=== PATIENT | female | born 1995 | race Caucasian/White ===

== ENCOUNTER 2017-07-30 08:02 | Emergency (ER) | payer OTHER ==
[~2017-07-30] VITALS: Ht 154.9 cm; Wt 87.4 kg
[~2017-07-30 08:02] MED LIST: ALBUTEROL SULF8.5 GM IH; BACTRIM,SEPT1 TABLET PO; MACROBID100 MG PO; NAPROSYN500 MG PO; PREDNISONE20 MG PO; PYRIDIUM200 MG PO; ZOFRAN ODT4 MG PO
[2017-07-30 08:39] VITALS: BP 125/76
== END 2017-07-30 08:40 | disposition home or self-care (01) ==
LOC: EME 08:02
DX: S01.512A Laceration without foreign body of oral cavity, initial encounter (principal); T18.9XXA Foreign body of alimentary tract, part unspecified, initial encounter; W25.XXXA Contact with sharp glass, initial encounter
CPT/HCPCS: 99281; 99283

== ENCOUNTER 2017-08-05 19:06 | Emergency (ER) | payer OTHER ==
[~2017-08-05] VITALS: Ht 157.5 cm; Wt 89.2 kg
[2017-08-05 21:06] LABS: ADD MIUA? YES; BILIRUBIN NEGATIVE; BLOOD NEGATIVE; COLOR YELLOW ((YELLOW)); GLUCOSE (STRIP) NEGATIVE; KETONES NEGATIVE; LEUKOCYTES NEGATIVE; NITRITE NEGATIVE; PROTEIN (STRIP) NEGATIVE; SPECIFIC GRAVITY 1.023 (1.000-1.030); UROBILINOGEN 0.2 MG/DL (0.2-1.0)
[2017-08-05 21:09] LABS: CHLORIDE 110 mEq/L (99-109); POTASSIUM 4.4 mEq/L (3.7-5.4); SODIUM 140 mEq/L (136-147)
[2017-08-05 21:10] LABS: GLUCOSE 78 mg/dL (70-99)
[2017-08-05 21:12] LABS: ANION GAP 4 MEQ/L (2-14)
[2017-08-05 21:13] LABS: BACTERIA RARE /HPF; EPITHELIAL CELLS 2+ /HPF; MUCUS TRACE /LPF; RED BLOOD CELLS 0-5 /HPF (0-5); WHITE BLOOD CELLS 0-5 /HPF (0-5)
[2017-08-05 21:14] LABS: GFR ESTIMATE (CALCULATED) > 59 mL/min/
[2017-08-05 21:15] LABS: UREA NITROGEN (BUN) 15 mg/dL (9-23)
[2017-08-05 22:10] VITALS: BP 108/59
== END 2017-08-05 22:11 | disposition home or self-care (01) ==
LOC: EME 19:06
PROVIDERS: Physician Assistant
DX: R60.0 Localized edema (principal); F17.200 Nicotine dependence, unspecified, uncomplicated
CPT/HCPCS: 80048; 81003; 99281; 99283